=== PATIENT | male | born 1995 | race African-American/Black ===

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

== ENCOUNTER 2017-02-06 17:32 | Emergency (ER) | payer SELFPAY ==
[~2017-02-06] VITALS: Ht 182.9 cm; Wt 63.5 kg
[2017-02-06 17:32] VITALS: BP 121/80
[~2017-02-06 17:32] MED LIST: DICY10CA53 PO; ONDA4TAB7 PO
--- NOTE | 2017-02-06 18:07 | PHYS DOC ---
Past Medical History Past Medical History: No Pertinent History Past Surgical History: No Surgical History Alcohol Use: None Drug Use: None Social History Narrative: "I'm around marijuana smokers" Adult General Chief Complaint Chief Complaint: LACERATION/AVULSION HPI HPI Patient is a 21 year old presents to the emergency department with complaints of an abrasion to the nose and laceration left side of face. Patient states he slipped and fell, steps striking his face on the ground. No loss of conscious. He states incident occurred approximately an hour prior to arrival. He has no complaints. Review of Systems Review of Systems Constitutional: Denies fever or chills [] Eyes: Denies change in visual acuity, redness, or eye pain [] HENT: Denies nasal congestion or sore throat [] Respiratory: Denies cough or shortness of breath [] Cardiovascular: No additional information not addressed in HPI [] GI: Denies abdominal pain, nausea, vomiting, bloody stools or diarrhea [] : Denies dysuria or hematuria [] Musculoskeletal: Denies back pain or joint pain [] Integument: Laceration Neurologic: Denies headache, focal weakness or sensory changes [] Endocrine: Denies polyuria or polydipsia [] All other systems were reviewed and found to be within normal limits, except as documented in this note. Allergies Allergies Allergies Coded Allergies Type Severity Reaction Last Updated Verified No Known Drug Allergies 06/30/16 No Physical Exam Physical Exam Constitutional: Well developed, well nourished, no acute distress, non-toxic appearance. [] HENT: Normocephalic, atraumatic, bilateral external ears normal, oropharynx moist, no oral exudates, nose normal. Left buccal mucosa is a 1 cm laceration, there is no gaping. There is a superficial puncture wound to the left external cheek that is in line with the puncture wound. There is a superficial abrasion across the bridge of the nose. The septum is midline without hematoma. There is no evidence of bleeding. [] Eyes: PERRLA, EOMI, conjunctiva normal, no discharge. [] Neck: Normal range of motion, no tenderness, supple, no stridor. [] Cardiovascular:Heart rate regular rhythm, no murmur [] Lungs & Thorax: Bilateral breath sounds clear to auscultation [] Abdomen: Bowel sounds normal, soft, no tenderness, no masses, no pulsatile masses. [] Skin: Warm, dry, no erythema, no rash. [] Back: No tenderness, no CVA tenderness. [] Extremities: No tenderness, no cyanosis, no clubbing, ROM intact, no edema. [] Neurologic: Alert and oriented X 3, normal motor function, normal sensory function, no focal deficits noted. [] Psychologic: Affect normal, judgement normal, mood normal. [] Current Patient Data Vital Signs Vital Signs Date Time Temp Pulse Resp B/P (MAP) Pulse Ox O2 Delivery O2 Flow Rate FiO2 02/06/17 17:32 98.8 76 18 121/80 (94) 98 Room Air 98.8 EKG EKG [] Radiology/Procedures Radiology/Procedures [] Course & Med Decision Making Course & Med Decision Making Pertinent Labs and Imaging studies reviewed. (See chart for details) []Procedure note: The wounds were cleansed with Betadine. Dermabond was used to approximate the wound edges on the posterior wound to the external left cheek as well as the bridge of the nose. The oral wound was not repaired as there was no gaping. Was provided with wound care information regarding the oral duration as well as the external skin abrasions. Verbalized understanding. Dragon Disclaimer Dragon Disclaimer This electronic medical record was generated, in whole or in part, using a voice recognition dictation system. Departure Departure Impression: Primary Impression: Laceration Additional Impression: Fall Disposition: 01 HOME, SELF-CARE Condition: STABLE Referrals: NO PCP (PCP) [facility] Patient Instructions: Facial Laceration, Mouth Laceration, Soft Tissue Injury of the Neck, [id number] Problem Qualifiers Additional Impression: Fall Encounter type: initial encounter Qualified Codes: W19.XXXA - Unspecified fall, initial encounter CANDE RIVERA [employer] Feb 06, 2017 18:07
[2017-02-07] MEDS ORDERED: NAPR-683 PO (22:40)
[2017-02-07] MEDS ORDERED: SULF1TAB24 PO (22:40)
== END 2017-02-06 18:17 | disposition home or self-care (01) ==
LOC: ER 17:32
DX: S01.412A Laceration without foreign body of left cheek and temporomandibular area, initial encounter (principal); S01.21XA Laceration without foreign body of nose, initial encounter; W52.XXXA Crushed, pushed or stepped on by crowd or human stampede, initial encounter; Y93.89 Activity, other specified; Y99.8 Other external cause status; Y92.89 Other specified places as the place of occurrence of the external cause
CPT/HCPCS: 12011; 99283

== ENCOUNTER 2017-02-07 22:22 | Emergency (ER) | payer SELFPAY ==
[~2017-02-07] VITALS: Ht 182.9 cm; Wt 63.5 kg
[2017-02-07 22:34] VITALS: BP 127/83
[2017-02-07] MEDS ORDERED: SULF1TAB24 PO (22:40)
[2017-02-07] MEDS ORDERED: NAPR-683 PO (22:40)
--- NOTE | 2017-02-07 22:42 | PHYS DOC ---
Past Medical History Past Medical History: No Pertinent History Past Surgical History: No Surgical History Alcohol Use: None Drug Use: None Adult General Chief Complaint Chief Complaint: WOUND CHECK [facility] HPI Patient is a 21 year old male presents to the emergency department with complaints of swelling to the left-sided face. Patient was evaluated in the emergency department yesterday after he had fallen and sustained an intraoral laceration with a puncture wound to the X Ashley cheek. Patient states that he awakened this morning and the area was more swollen. He states he has not had a fever, no difficulty with swallowing or phonation. Review of Systems Review of Systems Constitutional: Denies fever or chills [] Eyes: Denies change in visual acuity, redness, or eye pain [] HENT: Denies nasal congestion or sore throat Neck: No midline tenderness. Complain of neck tenderness Respiratory: Denies cough or shortness of breath [] Cardiovascular: No additional information not addressed in HPI [] GI: Denies abdominal pain, nausea, vomiting, bloody stools or diarrhea [] : Denies dysuria or hematuria [] Musculoskeletal: Denies back pain or joint pain [] Integument: Abscess Neurologic: Denies headache, focal weakness or sensory changes [] Endocrine: Denies polyuria or polydipsia [] All other systems were reviewed and found to be within normal limits, except as documented in this note. Allergies Allergies Allergies Coded Allergies Type Severity Reaction Last Updated Verified No Known Drug Allergies 06/30/16 No Physical Exam Physical Exam Constitutional: Well developed, well nourished, no acute distress, non-toxic appearance. [] HENT: Normocephalic, atraumatic, bilateral external ears normal, oropharynx moist, no oral exudates, nose normal. [] Eyes: PERRLA, EOMI, conjunctiva normal, no discharge. [] Neck: Normal range of motion, no midline or paracervical tenderness, supple, no stridor. [] Cardiovascular:Heart rate regular rhythm, no murmur [] Lungs & Thorax: Bilateral breath sounds clear to auscultation [] Abdomen: Bowel sounds normal, soft, no tenderness, no masses, no pulsatile masses. [] Skin: Warm, dry, Left cheek with mild erythema, mild swelling, 2 cm area of induration. The puncture wound has a small amount of purulent discharge. Intraoral wound with erythema and swelling. Back: No tenderness, no CVA tenderness. [] Extremities: No tenderness, no cyanosis, no clubbing, ROM intact, no edema. [] Neurologic: Alert and oriented X 3, normal motor function, normal sensory function, no focal deficits noted. [] Psychologic: Affect normal, judgement normal, mood normal. [] EKG EKG [] Radiology/Procedures Radiology/Procedures [] Course & Med Decision Making Course & Med Decision Making Pertinent Labs and Imaging studies reviewed. (See chart for details) []Procedure note: Mild pressure applied to the intraoral buccal mucosa, small amount of purulent discharge expressed from the external puncture wound. Patient tolerated well. Dragon Disclaimer Dragon Disclaimer This electronic medical record was generated, in whole or in part, using a voice recognition dictation system. Departure Departure Impression: Primary Impression: Facial abscess Disposition: 01 HOME, SELF-CARE Condition: STABLE Referrals: NO PCP (PCP) [facility] [place] Patient Instructions: Abscess Scripts Naproxen (NAPROSYN) 500 Mg Tablet 500 MG PO BID, #20 TAB Prov: CANDE RIVERA APRN 02/07/17 Sulfamethoxazole/Trimethoprim (BACTRIM DS TABLET) 1 Each Tablet 1 TAB PO BID, #20 TAB Prov: CANDE RIVERA APRN 02/07/17 CANDE RIVERA APRN Feb 07, 2017 22:42
[2017-02-07] MEDS ORDERED: cefTRIAXone IM 1 GM VIAL IM ONE (22:45)
== END 2017-02-07 23:15 | disposition home or self-care (01) ==
LOC: ER 22:22
DX: L02.01 Cutaneous abscess of face (principal); S01.512A Laceration without foreign body of oral cavity, initial encounter; W18.39XA Other fall on same level, initial encounter; Y93.89 Activity, other specified; Y99.8 Other external cause status; Y92.89 Other specified places as the place of occurrence of the external cause
CPT/HCPCS: 96372; 99283; J0696